=== PATIENT | female | born 1990 | race Caucasian/White ===

== ENCOUNTER 2018-04-24 13:34 | Emergency (ER) | payer OTHER ==
[~2018-04-24] VITALS: Ht 160 cm; Wt 70.3 kg
[2018-04-24 13:40] VITALS: Ht 160 cm; Wt 70.3 kg
[2018-04-24 14:23] LABS: microscopic required? YES; urine erythrocyte 1+ (NEGATIVE)
[2018-04-24 17:29] VITALS: BP 126/74
== END 2018-04-24 17:29 | disposition home or self-care (01) ==
LOC: ED 13:34
DX: J45.901 Unspecified asthma with (acute) exacerbation (principal); N39.0 Urinary tract infection, site not specified; Z88.0 Allergy status to penicillin
CPT/HCPCS: J7512; J7613; J7644

== ENCOUNTER 2019-01-14 22:28 | Emergency (ER) | payer OTHER ==
[~2019-01-14] VITALS: Ht 160 cm; Wt 63.5 kg
[2019-01-14 22:46] VITALS: Ht 160 cm; Wt 63.5 kg
[2019-01-15 00:16] VITALS: BP 128/83
== END 2019-01-15 00:16 | disposition home or self-care (01) ==
LOC: ED 22:28
DX: S93.601A Unspecified sprain of right foot, initial encounter (principal); X58.XXXA Exposure to other specified factors, initial encounter; Y93.89 Activity, other specified; Y92.89 Other specified places as the place of occurrence of the external cause; Y99.8 Other external cause status